=== PATIENT | male | born 1940 | race Caucasian/White ===

== ENCOUNTER 2022-08-09 13:20 | Inpatient (IN) ==
[2022-08-09] MEDS ORDERED: SODIUM CHLORIDE 0.9% 1000ML 1,000 ML IV STA (13:27)
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
[2022-08-09 14:09] LABS: Basophils # (auto) 0.04 K/uL (0-0.2); Basophils % (auto) 0.3 %; Eosinophils # (auto) 0.09 K/uL (0-0.50); Eosinophils % (auto) 0.7 %; Hematocrit (blood only) 46.4 % (42.0-52.0); Hemoglobin 16.5 g/dl (14.0-18.0); Immature Granulocytes # (auto) 0.05 K/uL (0.01-0.20); Immature Granulocytes % (auto) 0.4 %; Lymphocytes % (auto) 13.8 %; Mean Corpuscular Hemoglobin 33.7 pg (25.0-34.0); Mean Corpuscular Hgb Conc 35.6 g/dL (32.0-36.0); Mean Corpuscular Volume 94.7 fL (80.0-100.0); Monocytes # (auto) 1.13 K/uL (0.11-0.59); Monocytes % (auto) 8.2 %; Neutrophils # (auto) 10.52 K/uL (1.40-6.50); Neutrophils % (auto) 76.6 %; Platelet Count 252 K/uL (130-400); RDW Coefficient of Variation 13.2 % (11.5-14.5); RDW Standard Deviation 45.8 fL (36.4-46.3); White Blood Count 13.73 K/ul (4.8-10.8)
[2022-08-09 14:20] LABS: Albumin Globulin Ratio 1.4 (0.9-2); Albumin Level 4.1 gm/dl (3.4-5.0); Bilirubin,Total 1.2 mg/dl (0.2-1.0); Calcium 9.6 mg/dl (8.6-10.3); Creatinine Clr Calc Pharmacy 66.8 ml/min; Est GFR (African American) 93.8 ml/min; Est GFR (Non-African American) 80.9 ml/min; Potassium 3.2 mmol/L (3.5-5.1); Total Protein 7.1 gm/dl (6.0-8.3)
[2022-08-09 14:58] LABS: Appearance Urine Clear (Clear); Bilirubin Urine Negative (Negative); Blood Urine Negative (Negative); Color Urine Dark Yellow; Glucose Urine UA Negative (Negative); Ketones Urine Trace (Negative); Leukocyte Esterase Urine Negative (Negative); Nitrite Urine Negative (Negative); Protein Urine Negative (Negative); Specific Gravity Urine 1.024 (1.000-1.030); Urobilinogen Urine Negative (Negative)
[2022-08-09 15:03] LABS: INR 1.2 (0.9-1.1); Prothrombin Time 12.9 Seconds (9.0-12.0)
[2022-08-09] MEDS ORDERED: OPTIRAY 320 100ml IV ONE (15:12)
--- NOTE | 2022-08-09 15:50 | CT Scan Report ---
CT abd pelvis IV con only CLINICAL HISTORY: diarrhea, lower pain TECHNIQUE: Helical axial images of the abdomen and pelvis were obtained and displayed. Automated dose lowering techniques and/or adjustment according to patient size were utilized for this exam. This e xam was performed with intravenous contrast. CT DOSE: 937.19 mGy.cm COMPARISON: Comparison is made to CT abdomen pelvis 11/09/2021 FINDINGS: Lower chest: Bibasilar atelectasis versus scarring is seen. 9 mm right lower lobe nodule against the pleural base is seen, similar to prior exam. Liver: Unremarkable. No focal lesions are seen. Gallbladder and biliary tree: The gallbladder is contracted. No intra- or extrahepatic biliary ductal dilation. Pancreas: Unremarkable, no focal lesions. Spleen: Unremarkable. Adrenals: Nodularity of the adrenal glands is noted. Kidneys and ureters: Nonobstructive nephrolithiasis is seen. Bladder: Unremarkable. Reproductive organs: Unremarkable. Bowel: Fat stranding is seen about the proximal sigmoid colon. There is a 20 mm air and fluid collect ion just adjacent to the focus of fat stranding. The appendix is normal. Lymph nodes Retroperitoneal: Unremarkable. Pelvic: Unremarkable. Mesenteric: Unremarkable. Peritoneum: Fat stranding is seen about the sigmoid colon and there is a gas and fluid collection con cerning for contained perforation. No yobany pneumoperitoneum or faint foci of mesenteric fat strandin g in the lower abdomen are unchanged from prior exam. Vessels: Atherosclerotic calcifications are seen. Abdominal wall: Bilateral fat-containing inguinal hernias are seen. Bones: Degenerative changes in the visualized spine. Right hip arthroplasty is seen. IMPRESSION: 1. Findings are compatible with sigmoid diverticulitis. There is a gas and fluid collection adjacent to the focus of disease which may represent a contained perforation. 2. Interval stability of right lower lung pulmonary nodule. 3. Additional findings as above. ACT 112: Negative or not required by law. Electronically signed by: Pierce Murphy M.D. 08/09/2022 3:48 PM
[2022-08-09 16:08] LABS: Adenovirus F 40/41 PCR Not Detected (NotDetected); Astrovirus PCR Not Detected (NotDetected); Campylobacter PCR Not Detected (NotDetected); Cryptosporidium PCR Not Detected (NotDetected); Cyclospora cayetanensis PCR Not Detected (NotDetected); Entamoeba histolytica PCR Not Detected (NotDetected); Enteroaggregative E.coli(EAEC) Not Detected (NotDetected); Enteropathogenic E.coli (EPEC) Not Detected (NotDetected); Enterotoxigenic E.coli (ETEC) Not Detected (NotDetected); Giardia lamblia PCR Not Detected (NotDetected); Norovirus GI/GII PCR Not Detected (NotDetected); Plesiomonas shigelloides PCR Not Detected (NotDetected); Rotavirus A PCR Not Detected (NotDetected); Salmonella PCR Not Detected (NotDetected); Sapovirus PCR Not Detected (NotDetected); Shiga-like Toxin E.coli (STEC) Not Detected (NotDetected); Shigella/Enteroinvasive E.coli Not Detected (NotDetected); Vibrio cholerae PCR Not Detected (NotDetected); Vibrio species PCR Not Detected (NotDetected); Yersinia enterocolitica PCR Not Detected (NotDetected)
[2022-08-09] MEDS ORDERED: CIPROFLOXACIN / D5W 400 MG/200 ML BAG IV STA (16:10)
[2022-08-09] MEDS ORDERED: metroNIDAZOLE 500 MG/100 ML BAG IV STA (16:10)
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
[2022-08-09 17:18] LABS: Magnesium 1.5 mg/dl (1.7-2.4)
[2022-08-09] MEDS ORDERED: Heparin IV Adult Wt-Based Low-Dose *NO* Bolus Protocol IV SCH (17:50)
[2022-08-09] MEDS: LACTATED RINGER'S 1,000 ML IV SCH (18:42)
[2022-08-09] MEDS: POTASSIUM CHLORIDE / WTR 10 MEQ/100 ML PLCT IV SCH ×3 (18:42→20:39)
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
[2022-08-09] MEDS: HEPARIN SODIUM/DEXTROSE 25,000 UNITS/500 ML BAG IV SCH (20:00)
[2022-08-09] MEDS: MELATONIN 3 MG TAB PO PRN (22:06)
[2022-08-09] MEDS: LATANOPROST 0.005% OP SOLN 2.5 ML BTL OPB SCH (22:06)
[2022-08-09] MEDS ORDERED: ACETAMINOPHEN 1,000 MG/100 ML VIAL IV PRN (23:10)
[2022-08-10] MEDS: metroNIDAZOLE 500 MG/100 ML BAG IV SCH ×4 (01:20→20:10)
[2022-08-10] MEDS: LACTATED RINGER'S 1,000 ML IV SCH (03:05)
[2022-08-10 03:43] LABS: BUN Creatinine Ratio 20.6 (10-20); Calcium 8.7 mg/dl (8.6-10.3); Creatinine Clr Calc Pharmacy 85.5 ml/min; Est GFR (African American) 103.8 ml/min; Est GFR (Non-African American) 89.6 ml/min; Potassium 3.2 mmol/L (3.5-5.1)
[2022-08-10 03:58] LABS: Partial Thromboplastin Ratio 1.3; Partial Thromboplastin Time 36.9 Seconds (21.0-31.0)
[2022-08-10 04:17] LABS: Basophils # (auto) 0.02 K/uL (0-0.2); Basophils % (auto) 0.2 %; Eosinophils # (auto) 0.12 K/uL (0-0.50); Eosinophils % (auto) 1.2 %; Hematocrit (blood only) 38.6 % (42.0-52.0); Hemoglobin 13.4 g/dl (14.0-18.0); Immature Granulocytes # (auto) 0.07 K/uL (0.01-0.20); Immature Granulocytes % (auto) 0.7 %; Lymphocytes % (auto) 15.8 %; Mean Corpuscular Hemoglobin 32.7 pg (25.0-34.0); Mean Corpuscular Hgb Conc 34.7 g/dL (32.0-36.0); Mean Corpuscular Volume 94.1 fL (80.0-100.0); Mean Platelet Volume 9.9 fL (9.4-12.4); Monocytes # (auto) 0.96 K/uL (0.11-0.59); Monocytes % (auto) 9.5 %; Neutrophils # (auto) 7.37 K/uL (1.40-6.50); Neutrophils % (auto) 72.6 %; Platelet Count 189 K/uL (130-400); RDW Coefficient of Variation 13.1 % (11.5-14.5); RDW Standard Deviation 45.2 fL (36.4-46.3); White Blood Count 10.14 K/ul (4.8-10.8)
[2022-08-10] MEDS: CIPROFLOXACIN / D5W 400 MG/200 ML BAG IV SCH ×2 (04:52→16:35)
[2022-08-10] MEDS: METOPROLOL SUCC 50MG EXT REL TAB PO SCH (07:27)
[2022-08-10] MEDS: LOSARTAN POTASSIUM 50 MG TAB PO SCH (07:27)
[2022-08-10] MEDS: ATORVASTATIN 20 MG TAB PO SCH (07:27)
[2022-08-10] MEDS: amLODIPine BESYLATE 5 MG TAB PO SCH (07:28)
[2022-08-10] MEDS: MULTIVITAMIN TAB PO SCH (07:28)
[2022-08-10] MEDS: POTASSIUM CHLORIDE 20 MEQ in LACTATED RINGER'S 1,000 ML IV SCH ×2 (08:54→16:35)
[2022-08-10] MEDS: MAGNESIUM SULFATE / D5W 1 GM/100 ML BAG IV SCH ×2 (08:54→10:32)
--- NOTE | 2022-08-10 08:58 | Electrocardiogram Report ---
Test Reason : Blood Pressure : / mmHG Vent. Rate : 072 BPM Atrial Rate : 000 BPM P-R Int : 000 ms QRS Dur : 156 ms QT Int : 436 ms P-R-T Axes : 000 -16 -39 degrees QTc Int : 477 ms Atrial fibrillation Right bundle branch block Inferior infarct , age undetermined T wave abnormality, consider lateral ischemia Abnormal ECG When compared with ECG of 16-AUG-2020 16:11, Vent. rate has decreased BY 39 BPM Confirmed by John Yoo ([id number]) on 08/10/2022 8:57:55 AM Referred By: REFERRED SELF Confirmed By:Mando Yoo
[2022-08-10] MEDS ORDERED: hydroCHLOROthiazide 25 MG TAB PO SCH (09:00)
[2022-08-10 10:52] LABS: Partial Thromboplastin Ratio 1.3; Partial Thromboplastin Time 37.9 Seconds (21.0-31.0)
--- NOTE | 2022-08-10 10:55 | Surgery Progress Note ---
Date of Service August 10, 2022 Assessment & Plan (1) Diverticulitis of colon with perforation: Plan 82-year-old gentleman presents with diverticulitis with microperforation and small abscess. Continue conservative management with IV fluids and IV antibiotics, as well as bowel rest. We will continue to follow along. If he were to worsen or fail to improve, he may require further CT scan to determine whether the abscess is enlarging. Admission and Anticipated Discharge Date Admission Date: August 09, 2022 Subjective still c/o abdominal pain today. no n/v. no fevers overnight Physical Exam Gastrointestinal (Abdomen): Inspection/Auscultation: abdomen normal to inspection; abdomen not distended Percussion/Palpation: + abdomen tender (LLQ) and abdomen soft Results & Data Vital Signs (Past 12 Hours) Vital Signs Temp Pulse Pulse Resp BP Pulse Ox O2 Del Method 08/10/22 07:50 36.8 C 79 20 146/87 H 96 Room Air 08/10/22 07:03 85 08/10/22 03:00 36.8 C 78 18 130/76 96 Room Air, CPAP 08/10/22 03:48 75 08/10/22 03:48 CPAP 08/10/22 03:20 18 97 08/10/22 02:27 96 H 16 95 CPAP 08/09/22 23:40 86 FiO2 08/10/22 07:50 08/10/22 07:03 08/10/22 03:00 08/10/22 03:48 08/10/22 03:48 08/10/22 03:20 21 08/10/22 02:27 08/09/22 23:40
[2022-08-10 15:40] LABS: Magnesium 1.9 mg/dl (1.7-2.4); Potassium 3.5 mmol/L (3.5-5.1)
[2022-08-10 15:54] LABS: Partial Thromboplastin Ratio 1.3; Partial Thromboplastin Time 36.2 Seconds (21.0-31.0)
[2022-08-10 17:36] LABS: Partial Thromboplastin Ratio 1.2; Partial Thromboplastin Time 34.3 Seconds (21.0-31.0)
[2022-08-10] MEDS: HEPARIN SOD (PORCINE) 1000 UNIT/ML IV ONE ×2 (18:07→18:19)
[2022-08-10] MEDS: LATANOPROST 0.005% OP SOLN 2.5 ML BTL OPB SCH (20:10)
[2022-08-10] MEDS: guaiFENesin 600 MG TABCR PO SCH (20:28)
[2022-08-10] MEDS: MELATONIN 3 MG TAB PO PRN (22:19)
--- NOTE | 2022-08-10 23:26 | Hospitalist Progress Note ---
Date of Service August 10, 2022 Assessment & Plan (1) Diverticulitis of colon with perforation: Plan: sigmoid region, with 2cm abscess and contained microperforation. remains on cipro/flagyl IV. cont IV fluids but lower rate to 80cc/hr. cont pain meds prn. 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 (7) Hyperlipemia: Plan: remains on statin (8) Sleep apnea: Plan: CPAP HS (9) Hypokalemia: Plan: add KCL to fluids repeat BMP am (10) Hypomagnesemia: Plan: replaced resolved (11) DVT prophylaxis: Plan: heparin infusion Plan updated at bedside labs in am defer diet advancement to gen surg appreciate gen surg assistance Admission and Anticipated Discharge Date Admission Date: August 09, 2022 Subjective tele stable overnight; a.fib with rates <100 patient reports ongoing, mild LLQ pain no nausea or emesis had diarrhea at home - none here states he has had a cough for several weeks mild mucous production denies dyspnea denies orthopnea Review of Systems Review of Systems: gen - no fevers or chills cv - no chest pain pulm - mild cough GI - no vomiting Physical Exam Physical Exam: gen - NAD, awake/alert mouth - MMM neck - no JVD heart - irregular, s1 s2, no murmur lungs - minimal scales b/l bases, otherwise CTA b/l; no wheeze abd - soft, mildly tender LLQ, BS+, no hsm, no peritoneal signs ext - no edema, pulses 2+ b/l Results & Data Results & Data Vital Signs (Past 12 Hours) Vital Signs Temp Pulse Pulse Resp BP Pulse Ox O2 Del Method 08/10/22 21:00 Room Air 08/10/22 19:48 36.8 C 82 20 148/90 H 95 Room Air 08/10/22 15:33 80 08/10/22 15:30 36.6 C 75 18 128/83 95 Room Air Laboratory Results Laboratory Results - last 24 hr 08/10/22 08/10/22 08/10/22 03:15 03:15 03:16 WBC 10.14 RBC 4.10 L Hgb 13.4 L D Hct 38.6 L MCV 94.1 MCH 32.7 MCHC 34.7 RDW Std Deviation 45.2 RDW Coeff of Isai 13.1 Plt Count 189 MPV 9.9 Immature Gran % (Auto) 0.7 Neut % (Auto) 72.6 Lymph % (Auto) 15.8 [place] % (Auto) 9.5 Eos % (Auto) 1.2 Baso % (Auto) 0.2 Neut # (Auto) 7.37 H Lymph # (Auto) 1.60 [place] # (Auto) 0.96 H Eos # (Auto) 0.12 Baso # (Auto) 0.02 Immature Gran # (Auto) 0.07 APTT 36.9 H PTT Ratio 1.3 Sodium 138 Potassium 3.2 L Chloride 104 Carbon Dioxide 25 Anion Gap 9 BUN 14 Creatinine 0.68 Est Cr Clr Drug Dosing 85.5 Est GFR ( Amer) 103.8 Est GFR (Non-Af Amer) 89.6 BUN/Creatinine Ratio 20.6 H Glucose 110 H Calcium 8.7 Magnesium 08/10/22 08/10/22 08/10/22 10:03 14:49 14:49 WBC RBC Hgb Hct MCV MCH MCHC RDW Std Deviation RDW Coeff of Isai Plt Count MPV Immature Gran % (Auto) Neut % (Auto) Lymph % (Auto) [place] % (Auto) Eos % (Auto) Baso % (Auto) Neut # (Auto) Lymph # (Auto) [place] # (Auto) Eos # (Auto) Baso # (Auto) Immature Gran # (Auto) APTT 37.9 H 36.2 H PTT Ratio 1.3 1.3 Sodium Potassium 3.5 Chloride Carbon Dioxide Anion Gap BUN Creatinine Est Cr Clr Drug Dosing Est GFR ( Amer) Est GFR (Non-Af Amer) BUN/Creatinine Ratio Glucose Calcium Magnesium 1.9 08/10/22 16:48 WBC RBC Hgb Hct MCV MCH MCHC RDW Std Deviation RDW Coeff of Isai Plt Count MPV Immature Gran % (Auto) Neut % (Auto) Lymph % (Auto) [place] % (Auto) Eos % (Auto) Baso % (Auto) Neut # (Auto) Lymph # (Auto) [place] # (Auto) Eos # (Auto) Baso # (Auto) Immature Gran # (Auto) APTT 34.3 H PTT Ratio 1.2 Sodium Potassium Chloride Carbon Dioxide Anion Gap BUN Creatinine Est Cr Clr Drug Dosing Est GFR ( Amer) Est GFR (Non-Af Amer) BUN/Creatinine Ratio Glucose Calcium Magnesium PG Care Time/CCT Total # of Minutes Spent Total Time Spent with Patient: Total time spent is greater than 50% in coordination of care (as documented) at patient's floor/unit and/or counseling patient: Coding Level of Care Code 97491 SUB INP/OBS CARE MIN Diagnoses Diverticulitis of colon with perforation K57.20 Afib I48.91 Hypertension I10 Cough R05.9 Acid reflux K21.9 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 Hypokalemia E87.6 Hypomagnesemia E83.42 DVT prophylaxis Z29.9
[2022-08-10] MEDS: HEPARIN SODIUM/DEXTROSE 25,000 UNITS/500 ML BAG IV SCH (23:56)
[2022-08-11 00:55] LABS: Partial Thromboplastin Ratio 1.6
[2022-08-11 00:56] LABS: Partial Thromboplastin Time 45.4 Seconds (21.0-31.0)
[2022-08-11] MEDS: POTASSIUM CHLORIDE 20 MEQ in LACTATED RINGER'S 1,000 ML IV SCH ×2 (01:21→12:35)
[2022-08-11] MEDS: CIPROFLOXACIN / D5W 400 MG/200 ML BAG IV SCH ×2 (04:14→17:41)
[2022-08-11 06:05] LABS: Basophils # (auto) 0.04 K/uL (0-0.2); Basophils % (auto) 0.5 %; Eosinophils # (auto) 0.17 K/uL (0-0.50); Hematocrit (blood only) 40.7 % (42.0-52.0); Hemoglobin 14.2 g/dl (14.0-18.0); Immature Granulocytes # (auto) 0.05 K/uL (0.01-0.20); Immature Granulocytes % (auto) 0.6 %; Lymphocytes # (auto) 1.38 K/uL (1.2-3.4); Lymphocytes % (auto) 15.8 %; Mean Corpuscular Hemoglobin 32.6 pg (25.0-34.0); Mean Corpuscular Hgb Conc 34.9 g/dL (32.0-36.0); Mean Corpuscular Volume 93.3 fL (80.0-100.0); Mean Platelet Volume 9.8 fL (9.4-12.4); Monocytes # (auto) 0.76 K/uL (0.11-0.59); Monocytes % (auto) 8.7 %; Neutrophils # (auto) 6.31 K/uL (1.40-6.50); Neutrophils % (auto) 72.4 %; Platelet Count 233 K/uL (130-400); RDW Coefficient of Variation 12.4 % (11.5-14.5); RDW Standard Deviation 43.4 fL (36.4-46.3); Red Blood Count 4.36 M/uL (4.70-6.10); White Blood Count 8.71 K/ul (4.8-10.8)
[2022-08-11 06:41] LABS: Partial Thromboplastin Ratio 1.5
[2022-08-11 06:49] LABS: Partial Thromboplastin Time 41.3 Seconds (21.0-31.0)
[2022-08-11] MEDS: metroNIDAZOLE 500 MG/100 ML BAG IV SCH ×3 (07:34→21:18)
[2022-08-11] MEDS: guaiFENesin 600 MG TABCR PO SCH ×2 (07:35→21:17)
[2022-08-11] MEDS: PANTOprazole 40 MG TAB PO SCH (07:35)
[2022-08-11] MEDS: amLODIPine BESYLATE 5 MG TAB PO SCH (07:36)
[2022-08-11] MEDS: ATORVASTATIN 20 MG TAB PO SCH (07:36)
[2022-08-11] MEDS: METOPROLOL SUCC 50MG EXT REL TAB PO SCH (07:36)
[2022-08-11] MEDS: LOSARTAN POTASSIUM 50 MG TAB PO SCH (07:36)
[2022-08-11] MEDS: MULTIVITAMIN TAB PO SCH (07:37)
[2022-08-11] MEDS: MoRPHine SULFATE 2 MG/ML CARP IV PRN (07:40)
--- NOTE | 2022-08-11 09:54 | XRay Report ---
XR chest 2V PA/lateral HISTORY: 82 years-old Male cough x 3 weeks acute cough COMPARISON: Chest radiograph 08/16/2020 TECHNIQUE: PA and lateral views of the chest FINDINGS: Cardiac silhouette is enlarged. Atherosclerosis of the aorta. No pneumothorax, pleural effusion, airs pace consolidation or pulmonary edema. Degenerative changes of the shoulders and spine. IMPRESSION: Cardiomegaly without acute process. ACT 112: Negative or not required by law. The above report was generated using voice recognition software. It may contain grammatical, syntax o r spelling errors. Electronically signed by: Benjamin Jennings M.D. 08/11/2022 9:52 AM
--- NOTE | 2022-08-11 10:13 | Surgery Progress Note ---
Date of Service August 11, 2022 Assessment & Plan (1) Diverticulitis of colon with perforation: Plan 82-year-old gentleman presents with diverticulitis with microperforation and small abscess. Continue conservative management with IV fluids and IV antibiotics. Can advance to clear liquids today, advised to go slow. Will consult tubing oiler per patient request, discussed low fiber diet for 4-6 weeks and then high fiber diet due to diverticulosis. continue medical management Discussed with Dr. Hogue who agrees with above. Admission and Anticipated Discharge Date Admission Date: August 09, 2022 Subjective feeling better today abdominal pain about 4/10 with movement 0/10 when resting in bed no nausea or vomiting no fevers or chills Physical Exam Constitutional: WD/WN, vitals as above + obese, cooperative and comfortable; no acute distress and not ill appearing Gastrointestinal (Abdomen): Inspection/Auscultation: abdomen normal to inspection and + hypoactive bowel sounds; abdomen not distended and + abnormal bowel sounds Percussion/Palpation: + abdomen tender (LLQ and suprapubic) and abdomen soft; no guarding, abdomen not rigid and abdomen not firm Skin: no rashes, warm and dry Psychiatric: A+Ox3, euthymic affect Results & Data Vital Signs (Past 12 Hours) Vital Signs Temp Pulse Pulse Resp BP BP Pulse Ox 08/11/22 07:42 36.8 C 81 18 152/85 H 94 08/11/22 07:23 08/11/22 07:05 82 08/11/22 04:28 36.8 C 81 20 112/71 95 08/10/22 23:58 36.9 C 83 20 134/88 95 O2 Del Method 08/11/22 07:42 Room Air 08/11/22 07:23 Room Air 08/11/22 07:05 08/11/22 04:28 Room Air 08/10/22 23:58 Room Air Laboratory Results 08/11/22 08/11/22 08/10/22 Range/Units 05:26 05: 23:57 WBC 8.71 (4.8-10.8) K/ul RBC 4.36 L (4.70-6.10) M/uL Hgb 14.2 (14.0-18.0) g/dl Hct 40.7 L (42.0-52.0) % MCV 93.3 (80.0-100.0) fL MCH 32.6 (25.0-34.0) pg MCHC 34.9 (32.0-36.0) g/dL RDW Std Deviation 43.4 (36.4-46.3) fL RDW Coeff of Isai 12.4 (11.5-14.5) % Plt Count 233 (130-400) K/uL MPV 9.8 (9.4-12.4) fL Immature Gran % (Auto) 0.6 % Neut % (Auto) 72.4 % Lymph % (Auto) 15.8 % [place] % (Auto) 8.7 % Eos % (Auto) 2.0 % Baso % (Auto) 0.5 % Neut # (Auto) 6.31 (1.40-6.50) K/uL Lymph # (Auto) 1.38 (1.2-3.4) K/uL [place] # (Auto) 0.76 H (0.11-0.59) K/uL Eos # (Auto) 0.17 (0-0.50) K/uL Baso # (Auto) 0.04 (0-0.2) K/uL Immature Gran # (Auto) 0.05 (0.01-0.20) K/uL APTT 41.3 H* 45.4 H* (21.0-31.0) Seconds PTT Ratio 1.5 1.6 Potassium (3.5-5.1) mmol/L Magnesium (1.7-2.4) mg/dl 08/10/22 08/10/22 08/10/22 Range/Units 16:48 14:49 14:49 WBC (4.8-10.8) K/ul RBC (4.70-6.10) M/uL Hgb (14.0-18.0) g/dl Hct (42.0-52.0) % MCV (80.0-100.0) fL MCH (25.0-34.0) pg MCHC (32.0-36.0) g/dL RDW Std Deviation (36.4-46.3) fL RDW Coeff of Isai (11.5-14.5) % Plt Count (130-400) K/uL MPV (9.4-12.4) fL Immature Gran % (Auto) % Neut % (Auto) % Lymph % (Auto) % [place] % (Auto) % Eos % (Auto) % Baso % (Auto) % Neut # (Auto) (1.40-6.50) K/uL Lymph # (Auto) (1.2-3.4) K/uL [place] # (Auto) (0.11-0.59) K/uL Eos # (Auto) (0-0.50) K/uL Baso # (Auto) (0-0.2) K/uL Immature Gran # (Auto) (0.01-0.20) K/uL APTT 34.3 H 36.2 H (21.0-31.0) Seconds PTT Ratio 1.2 1.3 Potassium 3.5 (3.5-5.1) mmol/L Magnesium 1.9 (1.7-2.4) mg/dl 08/10/22 Range/Units 10:03 WBC (4.8-10.8) K/ul RBC (4.70-6.10) M/uL Hgb (14.0-18.0) g/dl Hct (42.0-52.0) % MCV (80.0-100.0) fL MCH (25.0-34.0) pg MCHC (32.0-36.0) g/dL RDW Std Deviation (36.4-46.3) fL RDW Coeff of Isai (11.5-14.5) % Plt Count (130-400) K/uL MPV (9.4-12.4) fL Immature Gran % (Auto) % Neut % (Auto) % Lymph % (Auto) % [place] % (Auto) % Eos % (Auto) % Baso % (Auto) % Neut # (Auto) (1.40-6.50) K/uL Lymph # (Auto) (1.2-3.4) K/uL [place] # (Auto) (0.11-0.59) K/uL Eos # (Auto) (0-0.50) K/uL Baso # (Auto) (0-0.2) K/uL Immature Gran # (Auto) (0.01-0.20) K/uL APTT 37.9 H (21.0-31.0) Seconds PTT Ratio 1.3 Potassium (3.5-5.1) mmol/L Magnesium (1.7-2.4) mg/dl
--- NOTE | 2022-08-11 19:06 | Hospitalist Progress Note ---
Date of Service August 11, 2022 Assessment & Plan (1) Diverticulitis of colon with perforation: Plan: sigmoid region, with 2cm abscess and contained microperforation. trialed on clears on 08/11 had increased pain; no fevers or leukocytosis--> downgrade back to NPO remains on cipro/flagyl IV. cont IV fluids at 80cc/hr. cont pain meds prn. 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 No nausea. no CP, SOB. Tele with Afib, PVCs, 11 beats VT Physical Exam Constitutional: WD/WN, vitals as above Respiratory: normal respiratory effort, lungs clear to auscultation Cardiovascular: Rate/Rhythm: regular rate and + irregularly irregular Extremities: no edema Gastrointestinal (Abdomen): Inspection/Auscultation: normal bowel sounds Percussion/Palpation: + abdomen tender (LLQ) and abdomen soft; no guarding Results & Data Results & Data Vital Signs (Past 12 Hours) Vital Signs Temp Pulse Pulse Resp BP BP Pulse Ox 08/11/22 15:22 36.6 C 66 18 133/84 97 08/11/22 15:16 83 08/11/22 10:40 36.5 C 82 20 128/81 95 08/11/22 07:42 36.8 C 81 18 152/85 H 94 08/11/22 07:23 O2 Del Method 05/16/23 15:22 Room Air 08/11/22 15:16 08/11/22 10:40 Room Air 08/11/22 07:42 Room Air 08/11/22 07:23 Room Air Laboratory Results CBC reviewed PG Care Time/CCT Total # of Minutes Spent Total Time Spent with Patient: Total time spent is greater than 50% in coordination of care (as documented) at patient's floor/unit and/or counseling patient: Coding Level of Care Code 66120 SUB INP/OBS CARE MIN Diagnoses Diverticulitis of colon with perforation K57.20 Afib I48.91 Hypertension I10 Cough R05.9 Acid reflux K21.9 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 Hypokalemia E87.6 Hypomagnesemia E83.42 DVT prophylaxis Z29.9
[2022-08-11] MEDS: LATANOPROST 0.005% OP SOLN 2.5 ML BTL OPB SCH (21:18)
[2022-08-11] MEDS: HEPARIN SODIUM/DEXTROSE 25,000 UNITS/500 ML BAG IV SCH (23:26)
[2022-08-12 04:22] LABS: Basophils # (auto) 0.03 K/uL (0-0.2); Basophils % (auto) 0.4 %; Eosinophils # (auto) 0.22 K/uL (0-0.50); Eosinophils % (auto) 2.9 %; Hematocrit (blood only) 39.4 % (42.0-52.0); Hemoglobin 14.1 g/dl (14.0-18.0); Immature Granulocytes # (auto) 0.05 K/uL (0.01-0.20); Immature Granulocytes % (auto) 0.7 %; Lymphocytes # (auto) 1.22 K/uL (1.2-3.4); Mean Corpuscular Hemoglobin 33.5 pg (25.0-34.0); Mean Corpuscular Hgb Conc 35.8 g/dL (32.0-36.0); Mean Corpuscular Volume 93.6 fL (80.0-100.0); Mean Platelet Volume 9.3 fL (9.4-12.4); Monocytes # (auto) 0.69 K/uL (0.11-0.59); Neutrophils # (auto) 5.43 K/uL (1.40-6.50); Platelet Count 220 K/uL (130-400); RDW Coefficient of Variation 12.6 % (11.5-14.5); RDW Standard Deviation 43.4 fL (36.4-46.3); Red Blood Count 4.21 M/uL (4.70-6.10); White Blood Count 7.64 K/ul (4.8-10.8)
[2022-08-12 04:39] LABS: Albumin Globulin Ratio 1.3 (0.9-2); Albumin Level 3.4 gm/dl (3.4-5.0); BUN Creatinine Ratio 10.4 (10-20); Bilirubin,Total 0.6 mg/dl (0.2-1.0); Calcium 8.8 mg/dl (8.6-10.3); Creatinine Clr Calc Pharmacy 87.4 ml/min; Est GFR (African American) 104.4 ml/min; Est GFR (Non-African American) 90.1 ml/min; Globulin 2.6 gm/dl (2.5-4.0); Magnesium 1.4 mg/dl (1.7-2.4); Potassium 3.6 mmol/L (3.5-5.1)
[2022-08-12 05:03] LABS: Partial Thromboplastin Ratio 1.5
[2022-08-12 05:33] LABS: Partial Thromboplastin Time 43.4 Seconds (21.0-31.0)
[2022-08-12] MEDS: POTASSIUM CHLORIDE 20 MEQ in LACTATED RINGER'S 1,000 ML IV SCH ×2 (05:36→23:37)
[2022-08-12] MEDS: CIPROFLOXACIN / D5W 400 MG/200 ML BAG IV SCH ×2 (05:36→17:34)
[2022-08-12] MEDS: metroNIDAZOLE 500 MG/100 ML BAG IV SCH ×2 (08:20→16:27)
[2022-08-12] MEDS: guaiFENesin 600 MG TABCR PO SCH ×2 (08:25→21:15)
[2022-08-12] MEDS: MULTIVITAMIN TAB PO SCH (08:25)
[2022-08-12] MEDS: METOPROLOL SUCC 50MG EXT REL TAB PO SCH (08:32)
[2022-08-12] MEDS: amLODIPine BESYLATE 5 MG TAB PO SCH (08:32)
[2022-08-12] MEDS: LOSARTAN POTASSIUM 50 MG TAB PO SCH (08:32)
[2022-08-12] MEDS: ATORVASTATIN 20 MG TAB PO SCH (08:32)
[2022-08-12] MEDS: PANTOprazole 40 MG TAB PO SCH (08:32)
[2022-08-12] MEDS: MAGNESIUM SULFATE / D5W 1 GM/100 ML BAG IV SCH ×2 (10:04→11:30)
--- NOTE | 2022-08-12 11:17 | Surgery Progress Note ---
Date of Service August 12, 2022 Assessment & Plan (1) Diverticulitis of colon with perforation: Plan 82-year-old gentleman presents with diverticulitis with microperforation and small abscess. Continue conservative management with IV fluids and IV antibiotics. Can advance to clear liquids again today, advised to go slow. low fiber diet for 4-6 weeks and then high fiber diet due to diverticulosis. continue medical management encouraged ambulation Discussed with Dr. Hogue who agrees with above. Admission and Anticipated Discharge Date Admission Date: August 09, 2022 Subjective feeling better this morning, pain is better not as severe no fevers or chills no nausea or vomiting has not been out of bed or walking, pain is minimal when resting in bed. Physical Exam Constitutional: WD/WN, vitals as above cooperative, comfortable and + overweight; no acute distress and not ill appearing Gastrointestinal (Abdomen): Inspection/Auscultation: abdomen normal to inspection and normal bowel sounds; abdomen not distended Percussion/Palpation: + abdomen tender (LLQ and suprapubic on deep palpation) and abdomen soft; no guarding, abdomen not rigid and abdomen not firm Skin: no rashes, warm and dry Results & Data Vital Signs (Past 12 Hours) Vital Signs Temp Pulse Pulse Resp BP BP Pulse Ox 08/12/22 11:07 36.9 C 77 18 137/87 95 08/12/22 07:00 89 08/12/22 08:03 36.8 C 78 18 133/89 94 08/12/22 04:11 36.7 C 78 20 152/90 H 94 08/11/22 23:50 36.4 C L 80 20 132/88 92 O2 Del Method 08/12/22 11:07 Room Air 08/12/22 07:00 08/12/22 08:03 Room Air 08/12/22 04:11 Room Air 08/11/22 23:50 Room Air, CPAP Laboratory Results 08/12/22 08/12/22 08/12/22 Range/Units 03:58 03:58 03:58 WBC 7.64 (4.8-10.8) K/ul RBC 4.21 L (4.70-6.10) M/uL Hgb 14.1 (14.0-18.0) g/dl Hct 39.4 L (42.0-52.0) % MCV 93.6 (80.0-100.0) fL MCH 33.5 (25.0-34.0) pg MCHC 35.8 (32.0-36.0) g/dL RDW Std Deviation 43.4 (36.4-46.3) fL RDW Coeff of Isai 12.6 (11.5-14.5) % Plt Count 220 (130-400) K/uL MPV 9.3 L (9.4-12.4) fL Immature Gran % (Auto) 0.7 % Neut % (Auto) 71.0 % Lymph % (Auto) 16.0 % [place] % (Auto) 9.0 % Eos % (Auto) 2.9 % Baso % (Auto) 0.4 % Neut # (Auto) 5.43 (1.40-6.50) K/uL Lymph # (Auto) 1.22 (1.2-3.4) K/uL [place] # (Auto) 0.69 H (0.11-0.59) K/uL Eos # (Auto) 0.22 (0-0.50) K/uL Baso # (Auto) 0.03 (0-0.2) K/uL Immature Gran # (Auto) 0.05 (0.01-0.20) K/uL APTT 43.4 H* (21.0-31.0) Seconds PTT Ratio 1.5 Sodium 138 (136-145) mmol/L Potassium 3.6 (3.5-5.1) mmol/L Chloride 105 (98-107) mmol/L Carbon Dioxide 27 (21-32) mmol/L Anion Gap 6 (3-11) BUN 7 (6-23) mg/dl Creatinine 0.67 (0.6-1.4) mg/dl Est Cr Clr Drug Dosing 87.4 ml/min Est GFR ( Amer) 104.4 ml/min Est GFR (Non-Af Amer) 90.1 ml/min BUN/Creatinine Ratio 10.4 (10-20) Glucose 92 (70-99(Fasting)) mg/dl Calcium 8.8 (8.6-10.3) mg/dl Magnesium 1.4 L (1.7-2.4) mg/dl Total Bilirubin 0.6 (0.2-1.0) mg/dl AST 22 (13-39) U/L ALT 16 (7-52) U/L Alkaline Phosphatase 38 (34-104) U/L Total Protein 6.0 (6.0-8.3) gm/dl Albumin 3.4 (3.4-5.0) gm/dl Globulin 2.6 (2.5-4.0) gm/dl Albumin/Globulin Ratio 1.3 (0.9-2)
--- NOTE | 2022-08-12 11:21 | Hospitalist Progress Note ---
Date of Service August 12, 2022 Assessment & Plan (1) Diverticulitis of colon with perforation: Plan: sigmoid region, with 2cm abscess and contained microperforation. trialed on clears on 08/11 had increased pain; no fevers or leukocytosis--> downgraded back to NPO Pain improved now, remains afebrile, no leukocytosis--> adv diet again to clears, watch for worsening pain -continue on cipro/flagyl IV. cont IV fluids at 80cc/hr. Replace magnesium IV today cont pain meds prn. 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 Ready to try some jello and ice chips Tele with rate controlled Afib Physical Exam Constitutional: WD/WN, vitals as above Respiratory: normal respiratory effort, lungs clear to auscultation Cardiovascular: Rate/Rhythm: regular rate and + irregularly irregular Extremities: no edema Gastrointestinal (Abdomen): Inspection/Auscultation: normal bowel sounds Percussion/Palpation: + abdomen tender (LLQ but much less than previous) and abdomen soft; no guarding Psychiatric: A+Ox3, euthymic affect Results & Data Results & Data Vital Signs (Past 12 Hours) Vital Signs Temp Pulse Pulse Resp BP BP Pulse Ox 08/12/22 11:07 36.9 C 77 18 137/87 95 08/12/22 07:00 89 08/12/22 08:03 36.8 C 78 18 133/89 94 08/12/22 04:11 36.7 C 78 20 152/90 H 94 08/11/22 23:50 36.4 C L 80 20 132/88 92 O2 Del Method 08/12/22 11:07 Room Air 08/12/22 07:00 08/12/22 08:03 Room Air 08/12/22 04:11 Room Air 08/11/22 23:50 Room Air, CPAP Laboratory Results CBC, CMP, magnesium reviewed PG Care Time/CCT Total # of Minutes Spent Total Time Spent with Patient: Total time spent is greater than 50% in coordination of care (as documented) at patient's floor/unit and/or counseling patient: Coding Level of Care Code 72588 SUB INP/OBS CARE MIN Diagnoses Diverticulitis of colon with perforation K57.20 Afib I48.91 Hypertension I10 Cough R05.9 Acid reflux K21.9 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 Hypokalemia E87.6 DVT prophylaxis Z29.9
[2022-08-12] MEDS: LATANOPROST 0.005% OP SOLN 2.5 ML BTL OPB SCH (21:15)
[2022-08-12] MEDS: HEPARIN SODIUM/DEXTROSE 25,000 UNITS/500 ML BAG IV SCH (22:27)
[2022-08-13] MEDS: metroNIDAZOLE 500 MG/100 ML BAG IV SCH ×4 (01:19→23:46)
[2022-08-13] MEDS: CIPROFLOXACIN / D5W 400 MG/200 ML BAG IV SCH ×2 (04:54→17:16)
[2022-08-13 07:49] LABS: Basophils # (auto) 0.03 K/uL (0-0.2); Basophils % (auto) 0.4 %; Eosinophils # (auto) 0.22 K/uL (0-0.50); Eosinophils % (auto) 3.1 %; Hemoglobin 14.2 g/dl (14.0-18.0); Immature Granulocytes # (auto) 0.05 K/uL (0.01-0.20); Immature Granulocytes % (auto) 0.7 %; Mean Corpuscular Hemoglobin 32.8 pg (25.0-34.0); Mean Corpuscular Hgb Conc 34.6 g/dL (32.0-36.0); Mean Corpuscular Volume 94.7 fL (80.0-100.0); Mean Platelet Volume 9.4 fL (9.4-12.4); Monocytes % (auto) 8.4 %; Neutrophils # (auto) 5.24 K/uL (1.40-6.50); Neutrophils % (auto) 73.4 %; Platelet Count 220 K/uL (130-400); RDW Coefficient of Variation 12.6 % (11.5-14.5); RDW Standard Deviation 43.9 fL (36.4-46.3); Red Blood Count 4.33 M/uL (4.70-6.10); White Blood Count 7.14 K/ul (4.8-10.8)
[2022-08-13 08:27] LABS: Basophils # (auto) 0.03 K/uL (0-0.2); Basophils % (auto) 0.4 %; Eosinophils # (auto) 0.19 K/uL (0-0.50); Eosinophils % (auto) 2.5 %; Hematocrit (blood only) 40.3 % (42.0-52.0); Hemoglobin 14.4 g/dl (14.0-18.0); Immature Granulocytes # (auto) 0.03 K/uL (0.01-0.20); Immature Granulocytes % (auto) 0.4 %; Lymphocytes # (auto) 1.15 K/uL (1.2-3.4); Lymphocytes % (auto) 15.1 %; Mean Corpuscular Hemoglobin 33.3 pg (25.0-34.0); Mean Corpuscular Hgb Conc 35.7 g/dL (32.0-36.0); Mean Corpuscular Volume 93.1 fL (80.0-100.0); Mean Platelet Volume 9.3 fL (9.4-12.4); Monocytes # (auto) 0.67 K/uL (0.11-0.59); Monocytes % (auto) 8.8 %; Neutrophils # (auto) 5.57 K/uL (1.40-6.50); Neutrophils % (auto) 72.8 %; Platelet Count 228 K/uL (130-400); RDW Coefficient of Variation 12.7 % (11.5-14.5); RDW Standard Deviation 43.6 fL (36.4-46.3); Red Blood Count 4.33 M/uL (4.70-6.10); White Blood Count 7.64 K/ul (4.8-10.8)
[2022-08-13 08:43] LABS: Albumin Globulin Ratio 1.3 (0.9-2); Albumin Level 3.5 gm/dl (3.4-5.0); BUN Creatinine Ratio 7.6 (10-20); Bilirubin,Total 0.6 mg/dl (0.2-1.0); Calcium 9.3 mg/dl (8.6-10.3); Creatinine Clr Calc Pharmacy 73.8 ml/min; Est GFR (African American) 97.6 ml/min; Est GFR (Non-African American) 84.2 ml/min; Globulin 2.6 gm/dl (2.5-4.0); Magnesium 1.7 mg/dl (1.7-2.4); Total Protein 6.1 gm/dl (6.0-8.3)
[2022-08-13] MEDS: LOSARTAN POTASSIUM 50 MG TAB PO SCH (08:48)
[2022-08-13] MEDS: PANTOprazole 40 MG TAB PO SCH (08:49)
[2022-08-13] MEDS: guaiFENesin 600 MG TABCR PO SCH ×2 (08:49→20:45)
[2022-08-13] MEDS: amLODIPine BESYLATE 5 MG TAB PO SCH (08:50)
[2022-08-13] MEDS: MULTIVITAMIN TAB PO SCH (08:51)
[2022-08-13] MEDS: METOPROLOL SUCC 50MG EXT REL TAB PO SCH (08:51)
[2022-08-13] MEDS: ATORVASTATIN 20 MG TAB PO SCH (08:51)
[2022-08-13 09:06] LABS: Partial Thromboplastin Ratio 1.5
[2022-08-13 09:12] LABS: Partial Thromboplastin Time 41.7 Seconds (21.0-31.0)
[2022-08-13] MEDS: BRIMONIDINE TARTRATE 0.2% 5ML OPB SCH ×2 (11:30→20:45)
--- NOTE | 2022-08-13 13:12 | Surgery Progress Note ---
Date of Service August 13, 2022 Assessment & Plan (1) Diverticulitis of colon with perforation: Plan: significantly improved today. Advance diet as tolerated. Switch to oral antibiotics tomorrow, possible home tomorrow. Follow up in clinic. Admission and Anticipated Discharge Date Admission Date: August 09, 2022 Subjective feeling significant improvement today. Minimal pain. Tolerating clears. No nausea vomiting. No fevers. Physical Exam Physical Exam: NAD, A&0 x 3 AF VSS Abdomen: Soft, minimal TTP in suprapubic region No guarding, no rebound Results & Data Vital Signs (Past 12 Hours) Vital Signs Temp Pulse Pulse Resp BP Pulse Ox O2 Del Method 08/13/22 11:32 36.6 C 78 18 132/92 96 Room Air 08/13/22 08:02 36.7 C 80 16 138/87 97 Room Air 08/13/22 04:57 37.0 C 85 18 142/82 H 95 Room Air 08/13/22 01:55 72
--- NOTE | 2022-08-13 14:58 | Hospitalist Progress Note ---
Date of Service August 13, 2022 Assessment & Plan (1) Diverticulitis of colon with perforation: Plan: sigmoid region, with 2cm abscess and contained microperforation. trialed on clears on 08/11 had increased pain; no fevers or leukocytosis--> downgraded back to NPO Pain improved now, remains afebrile, no leukocytosis--> advanced diet to clears, pain is improving, doing much better -Advance diet to full liquids -continue on cipro/flagyl IV and plan to convert to p.o. antibiotics at discharge for total of 2 weeks -Discontinue IV fluids -Cont pain meds prn. -Appreciate SUrgery consultation-needs a follow-up in the outpatient surgery clinic after discharge -Should have a follow on colonoscopy in 6 to 8 weeks after discharge. (2) Afib: Plan: Permanent Afib rates controlled eliquis on hold while n.p.o. 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: Plan: cont PPI Just had recent EGD in 05/2022 (7) Hyperlipemia: Plan: continue statin (8) Sleep apnea: Plan: CPAP HS (9) Hypokalemia: Plan: Replaced and resolved Follow BMP (10) DVT prophylaxis: Plan: heparin infusion will not be converted to Eliquis Disposition-continued stay, improving, will likely advance to low fiber diet tomorrow and hopefully discharge tomorrow evening or Wednesday morning Discussed care with his at the bedside Admission and Anticipated Discharge Date Admission Date: August 09, 2022 Anticipated date of discharge: 08/14/22 Subjective Doing much better today, far less abdominal pain. No nausea. He is tolerating clear liquids diet since yesterday. He had a watery yellow bowel movement with small pieces of brown stool that are formed. No chest pains or shortness of breath, no lightheadedness or headache. Telemetry with atrial fibrillation with rates in the 60s to 70s. Physical Exam Constitutional: WD/WN, vitals as above Respiratory: normal respiratory effort, lungs clear to auscultation Cardiovascular: Rate/Rhythm: regular rate and + irregularly irregular Ex tremities: no edema Gastrointestinal (Abdomen): Inspection/Auscultation: normal bowel sounds Percussion/Palpation: + abdomen tender (LLQ minimal, no guarding or rebound) and abdomen soft; no guarding Psychiatric: A+Ox3, euthymic affect Results & Data Results & Data Vital Signs (Past 12 Hours) Vital Signs Temp Pulse Resp BP Pulse Ox O2 Del Method 08/13/22 11:32 36.6 C 78 18 132/92 96 Room Air 08/13/22 08:02 36.7 C 80 16 138/87 97 Room Air 08/13/22 04:57 37.0 C 85 18 142/82 H 95 Room Air Laboratory Results CBC, BMP, LFTs, magnesium level, and PTT reviewed PG Care Time/CCT Total # of Minutes Spent Total Time Spent with Patient: Total time spent is greater than 50% in coordination of care (as documented) at patient's floor/unit and/or counseling patient: Coding Level of Care Code 52980 SUB INP/OBS CARE MIN Diagnoses Diverticulitis of colon with perforation K57.20 Afib I48.91 Hypertension I10 Cough R05.9 Acid reflux K21.9 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 Hypokalemia E87.6 DVT prophylaxis Z29.9
[2022-08-13] MEDS: POTASSIUM CHLORIDE 20 MEQ in LACTATED RINGER'S 1,000 ML IV SCH (19:34)
[2022-08-13] MEDS: TIMOLOL MALEATE 0.5% OP SOLN 5 ML BTL OPB SCH (20:45)
[2022-08-13] MEDS: APIXABAN 5 MG TABLET PO SCH (20:45)
[2022-08-13] MEDS: LATANOPROST 0.005% OP SOLN 2.5 ML BTL OPB SCH (20:45)
[2022-08-13] MEDS: HEPARIN SODIUM/DEXTROSE 25,000 UNITS/500 ML BAG IV SCH (20:46)
[2022-08-14] MEDS: MoRPHine SULFATE 2 MG/ML CARP IV PRN ×2 (02:37→06:30)
[2022-08-14] MEDS: CIPROFLOXACIN / D5W 400 MG/200 ML BAG IV SCH (04:15)
[2022-08-14 07:17] LABS: Basophils # (auto) 0.03 K/uL (0-0.2); Basophils % (auto) 0.4 %; Eosinophils % (auto) 2.7 %; Hematocrit (blood only) 39.6 % (42.0-52.0); Hemoglobin 13.8 g/dl (14.0-18.0); Immature Granulocytes # (auto) 0.05 K/uL (0.01-0.20); Immature Granulocytes % (auto) 0.7 %; Lymphocytes % (auto) 16.1 %; Mean Corpuscular Hemoglobin 33.1 pg (25.0-34.0); Mean Corpuscular Hgb Conc 34.8 g/dL (32.0-36.0); Mean Platelet Volume 9.5 fL (9.4-12.4); Monocytes # (auto) 0.77 K/uL (0.11-0.59); Monocytes % (auto) 10.3 %; Neutrophils # (auto) 5.19 K/uL (1.40-6.50); Neutrophils % (auto) 69.8 %; Platelet Count 238 K/uL (130-400); RDW Coefficient of Variation 12.8 % (11.5-14.5); RDW Standard Deviation 44.7 fL (36.4-46.3); Red Blood Count 4.17 M/uL (4.70-6.10); White Blood Count 7.44 K/ul (4.8-10.8)
[2022-08-14 07:28] LABS: Albumin Globulin Ratio 1.4 (0.9-2); Albumin Level 3.4 gm/dl (3.4-5.0); BUN Creatinine Ratio 9.6 (10-20); Bilirubin,Total 0.5 mg/dl (0.2-1.0); Creatinine Clr Calc Pharmacy 80.4 ml/min; Est GFR (African American) 100.8 ml/min; Globulin 2.5 gm/dl (2.5-4.0); Magnesium 1.5 mg/dl (1.7-2.4); Potassium 3.8 mmol/L (3.5-5.1); Total Protein 5.9 gm/dl (6.0-8.3)
[2022-08-14] MEDS: METOPROLOL SUCC 50MG EXT REL TAB PO SCH (08:12)
[2022-08-14] MEDS: LOSARTAN POTASSIUM 50 MG TAB PO SCH (08:12)
[2022-08-14] MEDS: amLODIPine BESYLATE 5 MG TAB PO SCH (08:12)
[2022-08-14] MEDS: ATORVASTATIN 20 MG TAB PO SCH (08:12)
[2022-08-14] MEDS: MULTIVITAMIN TAB PO SCH (08:12)
[2022-08-14] MEDS: APIXABAN 5 MG TABLET PO SCH (08:12)
[2022-08-14] MEDS: PANTOprazole 40 MG TAB PO SCH (08:13)
[2022-08-14] MEDS: guaiFENesin 600 MG TABCR PO SCH (08:17)
[2022-08-14] MEDS: metroNIDAZOLE 500 MG/100 ML BAG IV SCH (08:17)
[2022-08-14] MEDS: TIMOLOL MALEATE 0.5% OP SOLN 5 ML BTL OPB SCH (08:20)
[2022-08-14] MEDS: BRIMONIDINE TARTRATE 0.2% 5ML OPB SCH (08:21)
[2022-08-14] MEDS ORDERED: PANTOprazole 40 MG TAB PO SCH (09:00)
[2022-08-14 09:01] LABS: Creatinine Clr Calc Pharmacy 81.5 ml/min; Est GFR (African American) 101.4 ml/min; Est GFR (Non-African American) 87.5 ml/min
[2022-08-14] MEDS: MAGNESIUM SULFATE / D5W 1 GM/100 ML BAG IV SCH ×2 (09:21→11:02)
--- NOTE | 2022-08-14 11:45 | Surgery Progress Note ---
Date of Service August 14, 2022 Assessment & Plan (1) Diverticulitis of colon with perforation: Plan: continues to improve no pain today no leukocytosis or fevers Plan: Advance to low fiber diet Okay from surgical standpoint for discharge total course of 2 weeks of antibiotics follow-up surgical office in 2-3 weeks Admission and Anticipated Discharge Date Admission Date: August 09, 2022 Subjective feeling good no abdominal pain had bowel movement yesterday no n,v did not eat much of full liquids per choice not because of any pain Physical Exam Constitutional: WD/WN, vitals as above + obese, cooperative and comfortable; no acute distress and not ill appearing Gastrointestinal (Abdomen): Inspection/Auscultation: abdomen normal to inspection; abdomen not distended Percussion/Palpation: abdomen soft; abdomen nontender, no guarding, abdomen not rigid and abdomen not firm Psychiatric: A+Ox3, euthymic affect Results & Data Vital Signs (Past 12 Hours) Vital Signs Temp Pulse Pulse Resp BP Pulse Ox O2 Del Method 08/14/22 11:12 36.9 C 74 18 130/81 95 Room Air 08/14/22 07:51 36.9 C 81 20 159/92 H 95 Room Air 08/14/22 07:44 78 Laboratory Results 08/14/22 08/14/22 08/14/22 Range/Units 06:17 06:17 06:17 WBC 7.44 (4.8-10.8) K/ul RBC 4.17 L (4.70-6.10) M/uL Hgb 13.8 L (14.0-18.0) g/dl Hct 39.6 L (42.0-52.0) % MCV 95.0 (80.0-100.0) fL MCH 33.1 (25.0-34.0) pg MCHC 34.8 (32.0-36.0) g/dL RDW Std Deviation 44.7 (36.4-46.3) fL RDW Coeff of Isai 12.8 (11.5-14.5) % Plt Count 238 (130-400) K/uL MPV 9.5 (9.4-12.4) fL Immature Gran % (Auto) 0.7 % Neut % (Auto) 69.8 % Lymph % (Auto) 16.1 % [place] % (Auto) 10.3 % Eos % (Auto) 2.7 % Baso % (Auto) 0.4 % Neut # (Auto) 5.19 (1.40-6.50) K/uL Lymph # (Auto) 1.20 (1.2-3.4) K/uL [place] # (Auto) 0.77 H (0.11-0.59) K/uL Eos # (Auto) 0.20 (0-0.50) K/uL Baso # (Auto) 0.03 (0-0.2) K/uL Immature Gran # (Auto) 0.05 (0.01-0.20) K/uL Sodium 139 (136-145) mmol/L Potassium 3.8 (3.5-5.1) mmol/L Chloride 106 (98-107) mmol/L Carbon Dioxide 28 (21-32) mmol/L Anion Gap 5 (3-11) BUN 7 (6-23) mg/dl Creatinine 0.73 0.72 (0.6-1.4) mg/dl Est Cr Clr Drug Dosing 80.4 81.5 ml/min Est GFR ( Amer) 100.8 101.4 ml/min Est GFR (Non-Af Amer) 87.0 87.5 ml/min BUN/Creatinine Ratio 9.6 L (10-20) Glucose 100 H (70-99(Fasting)) mg/dl Calcium 9.0 (8.6-10.3) mg/dl Magnesium 1.5 L (1.7-2.4) mg/dl Total Bilirubin 0.5 (0.2-1.0) mg/dl AST 76 H (13-39) U/L ALT 63 H (7-52) U/L Alkaline Phosphatase 40 (34-104) U/L Total Protein 5.9 L (6.0-8.3) gm/dl Albumin 3.4 (3.4-5.0) gm/dl Globulin 2.5 (2.5-4.0) gm/dl Albumin/Globulin Ratio 1.4 (0.9-2)
--- NOTE | 2022-08-14 13:56 | Discharge Summary ---
Discharge Summary Date of Service August 14, 2022 Notes For Next Care Provider Needs colonoscopy in 6-8 weeks Needs repeat LFTs within 1 week to ensure normalized Medication Changes From Visit Cipro and Flagyl x 8 more days Added on magnesium supplement Admission HPI Per Admitting Provider Orlin is a 82-year-old male with a past medical history of diverticulitis with perforation, A-fib, Miller's esophagus, hyperlipidemia, sleep apnea who presented to the emergency department with lower abdominal pain. Orlin is seen at the bedside with his present. He reports sx began approximately 3 days ago and has been associated with increasing watery diarrhea over the last 24 hours. Though he had bad orange juice on . Pain is mostly in the left lower quadrant and progressively worsening. He has not had any hematochezia. Had a fever yesterday. No ches tpain or chest pressure. no shortness of breath. No vomiting, no nausea. Diminished appetite. Denies palpitations, syncope, presyncope. Thinks he took his Am medications. Denies chest pain, chest pressure, shortness of breath, difficulty breathing. Pain in his left quadrant is worsened on palpation and shoots down towards the left groin. He reports his had a colon resection was performed at [facility], if he were to need surgery would prefer to have it done at [facility] but is aware that he is recommended for medical management at this time. If he clinically worsens or is evidence of open perforation, will discuss ability for elective transfer to [place] if stable enough to do so, and understands that should he perforate and be unstable he may require surgery here. No additional questions or concerns at time of bedside evaluation Medical History: Reviewed Medications: Reviewed Surgical History: Reviewed Family history: Reviewed Allergies: Reviewed Social History: Former tobacco product use in last 40 years, no Etoh in 40 years. Code Status: Full Code Principal Dx & Hospital Course #1 = Principal Diagnosis (1) Diverticulitis of colon with perforation: sigmoid region, with 2cm abscess and contained microperforation. Was treated with IV Cipro and Flagyl, IVFs, NPO status/bowel rest Slowly advanced diet and pain was much improved, remains afebrile, no leukocytosis Appreciate SUrgery consultation-f/u as outpt in 2-3 weeks-seen by Dr. Bryce Hogue of [facility] Surgery -continue on cipro/flagyl po at discharge for 8 more days for a total of 2 weeks -Should have a follow on colonoscopy in 6 to 8 weeks after discharge. He follows with [facility] (2) Transaminitis: AST and LAT mildly elevated on day of discharge could be medication related or related to acute infection TBili and alk phos normal, abd pain is improving repeat within 1 week as outpt (3) Hypertension: BPs controlled held HCTZ but can resume on discharge cont amlodipine cont losartan (4) Hypokalemia: Replaced and resolved Hypomagnesemia-persists but due to poor po intake lately--> replaced with IV mag in hospital and can take mag oxide 250mg po daily on discharge HCTZ may play a role as well follow BMP and mag as outpt with PCP (5) Afib: Permanent Afib rates controlled continue ELiquis (6) Cough: x 2-3 weeks prior to admission minimal rales bases on exam, now resolved Chest x-ray negative continue mucinex 1200mg BID resolved (7) Acid reflux: cont PPI (8) Miller's esophagus without dysplasia: cont PPI Just had recent EGD in 05/2022 (9) Hyperlipemia: continue statin (10) Sleep apnea: CPAP HS (11) DVT prophylaxis: heparin gtt and then Eliquis Dispo-dc to home Discharge Exam Constitutional WD/WN, vitals as above Respiratory normal respiratory effort, lungs clear to auscultation Cardiovascular Rate/Rhythm: regular rate and + irregularly irregular Extremities: no edema Gastrointestinal (Abdomen) Inspection/Auscultation: normal bowel sounds Percussion/Palpation: abdomen soft; abdomen nontender and no guarding Psychiatric A+Ox3, euthymic affect Updated Medication List Medication Instructions Recorded Confirmed Type amlodipine 5 mg tablet 5 mg PO QAM 05/28/22 08/09/22 History atorvastatin 20 mg tablet 20 mg PO QAM 05/28/22 08/09/22 History brimonidine 0.2 %-timolol 0.5 % 1 drp OPB BID 05/28/22 08/09/22 History eye drops hydrochlorothiazide 25 mg tablet 25 mg PO QAM 05/28/22 08/09/22 History irbesartan 300 mg tablet 300 mg PO QAM 05/28/22 08/09/22 History latanoprost 0.005 % eye drops 1 drp OPB HS 05/28/22 08/09/22 History metoprolol succinate 50 mg 50 mg PO QAM 05/28/22 08/09/22 History tablet,extended release 24 hr multivitamin 1 tab PO QAM 05/28/22 08/09/22 History nabumetone 500 mg tablet 1,000 mg PO BID 05/28/22 08/09/22 History omeprazole 20 mg capsule,delayed 20 mg PO QAM 05/28/22 08/09/22 History release apixaban 5 mg tablet (Eliquis) 0 mg PO BID 08/09/22 08/09/22 History ciprofloxacin HCl 500 mg tablet 500 mg PO Q12H #16 tabs 08/14/22 Rx magnesium 250 mg tablet 250 mg PO HS #30 tabs 08/14/22 Rx metronidazole 500 mg tablet 500 mg PO Q8H #24 tabs 08/14/22 Rx Hospital Stay Data Consultations 08/09/22 16:09 Consult General Surgery Routine 08/09/22 16:33 ED Decision to Admit Stat Diagnostic Imagining Performed 08/09/22 13:27 CT abd pelvis IV con only Stat Pending Results Patient Have Any Pending Studies at Discharge: No Discharge Instructions Given to Patient (Per Discharging Provider) Please finish out the course of antibiotics for 8 more days with Cipro and Flagyl. You will need to remain on a low fiber diet and see the Surgeon within 2-3 weeks. You also should have a colonoscopy in 6-8 weeks. Your liver enzymes were very mildly elevated. Please have your PCP repeat your labs within 1 week to ensure these are returning to normal. This is most likely related to your acute illness and should resolve on its own as the infection continues to be treated. Your magnesium levels have been low from not eating much lately. You should take a magnesium supplement. You should not take nabumetone while you are on Eliquis because it is an NSAID which also can thin the blood. You can take acetaminophen for arthritis pain. Total Time Total Time Spent Total Time Spent (In Minutes): 35 min Coding Level of Care Code 73925 INP/OBS DISCH >30 MIN Diagnoses Diverticulitis of colon with perforation K57.20 Transaminitis R74.01 Hypertension I10 Hypokalemia E87.6 Afib I48.91 Cough R05.9 Acid reflux K21.9 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 DVT prophylaxis Z29.9
[2022-08-14] MEDS ORDERED: metroNIDAZOLE 500 MG TAB PO SCH (15:00)
[2022-08-14] MEDS ORDERED: CIPROFLOXACIN 500 MG TAB PO SCH (18:00)
== END 2022-08-14 15:15 | disposition home or self-care (01) | DRG 392 ==
LOC: ED 13:20 → SUATTDRO 17:02 → EDINP 17:02 → 2N 08-10 02:27